=== PATIENT | female | born 1980 | race Caucasian/White ===

== ENCOUNTER 2024-03-12 08:35 | Emergency (ER) | payer BC, SELFPAY ==
[2024-03-12 08:38] VITALS: BP 106/68; PULSE 68; RESP 16; TEMP 36.8; O2SAT 100; BMI 21.9
--- NOTE | 2024-03-12 09:00 | CT_ITS ---
Patient: LILLIAN GARNER Facility:?[facility] Patient ID:?[id number] Site Patient ID:?[id number]. Site :?[id number] Study:?CT-Abdomen/Pelvis W/ 58CC ISOVUE 370-03/12/2024 10:08:52 AM Ordering Physician:JOSÉ Final Report: INDICATION: Left-sided abdominal pain. History of IBS. History of appendectomy and cholecystectomy. Pacemaker. COMPARISON: There are no prior studies for comparison TECHNIQUE: CT examination of the abdomen and pelvis was performed following the uneventful intravenous administration of 58 cc of Isovue 370. Thin section axial images were obtained from the lung bases through the pubic symphysis. Oral contrast was not administered. Please note that all CT scans at this facility use dose modulation, iterative reconstruction, and/or weight-based dosing when appropriate to reduce radiation dose to as low as reasonably achievable. FINDINGS: LUNG BASES: The lung bases as visualized appear normal.The heart size is normal at the lung bases. LIVER/BILIARY SYSTEM:Hypervascular lesion in the right lobe of the liver measuring about 13 millimeters. Statistically this is most likely a hemangioma.Recommend confirmation an ultrasound could be performed as a 1st line of additional evaluation. No biliary ductal dilation. There has been a cholecystectomy ADRENALS: There is KIDNEYS, URETERS and BLADDER:The kidneys appear normal. No visible mass, calculus or hydronephrosis. The ureters and bladder as visualized appear normal. SPLEEN:Normal appearance. PANCREAS: Appears normal. RETROPERITONEUM and MESENTERY: There is no mass, adenopathy or aortic aneurysm. GASTROINTESTINAL SYSTEM: Bowel wall thickening on the left. This is primarily proximal and mid jejunum. There is also a jejunojejunal intussusception. This is best seen on coronal images number 30 through 37. No clearly visible pathologic lead point or upstream dilation to suggest obstruction. No specific findings of mesenteric ischemia on this exam. Regarding the colon, diffuse fecal retention without colonic mechanical obstruction. PELVIS: No mass, adenopathy or free fluid. OSSEOUS STRUCTURES and ABDOMINAL WALL: There is an age-appropriate appearance of the osseous structures.No significant abdominal wall defect. OTHER: No free fluid or free air. IMPRESSION: 1. Nonspecific diffuse wall thickening on the left. This is primarily proximal and mid jejunum. There is also a jejunojejunal intussusception in this area. No clearly visible pathologic lead point or upstream dilation to suggest obstruction. No CT findings of mesenteric ischemia. 2. Hypervascular lesion in the right lobe of the liver probably a hemangioma. Confirmation by follow-up imaging recommended at a clinically appropriate time Please note that all CT scans at this facility use dose modulation, iterative reconstruction, and/or weight-based dosing when appropriate to reduce radiation dose to as low as reasonably achievable. Dictated by Rashaad Cohn MD @ 03/12/2024 10:38:01 AM Signed by:?Rashaad Cohn MD @03/12/2024 10:38:01 AM (Electronic Signature)
--- NOTE | 2024-03-12 09:02 | ED.ABDPAIN ---
HPI - Abdominal Pain General Chief Complaint: Abdominal Pain Stated Complaint: abdominal pain Time Seen by Provider: 03/12/24 08:49 History of Present Illness HPI narrative: This 44-year-old female comes in reporting abdominal pain that started last week. She did have a visit to her primary physician and a CT scan was done which showed the possibility of a small amount of intussusception in the small bowel. She contacted the surgeon is said it would likely resolve on its own. At that time her pain was crampy. This morning her pain became more constant. She arrives here with normal vital signs. She states that she had a bowel movement after some constipation. The bowel movement was last night and then and there was some diarrhea this morning. She does not report any fever or blood in the toilet. She states that she has a complicated medical history. She reports having 12 different surgeries. She does report history of irritable bowel syndrome. Related Data Home Medications Medication Instructions Recorded Confirmed cholecalciferol (vitamin D3) 125 125 mcg PO QDAY 09/20/23 03/12/24 mcg (5,000 unit) capsule desvenlafaxine succinate 100 mg 100 mg PO DAILY 09/20/23 03/12/24 tablet,extended release 24 hr estradiol 0.1 mg/24 hr semiweekly 1 patch transdermal 2XW 09/20/23 03/12/24 transdermal patch quetiapine 25 mg tablet mg PO 09/20/23 09/20/23 Previous Rx's Medication Instructions Recorded ketorolac 10 mg tablet 10 mg PO Q8H 5 days #15 tabs 03/12/24 ondansetron HCl 4 mg tablet 4 mg PO Q6H #15 tabs 03/12/24 Allergies Allergy/AdvReac Type Severity Reaction Status Date / Time acetaminophen [From Roxicet] Allergy Intermediate Verified 03/12/24 10:02 oxycodone [From Roxicet] Allergy Intermediate Verified 03/12/24 10:02 adhesive tape Allergy Verified 03/12/24 10:02 ciprofloxacin Allergy Verified 03/12/24 10:02 nitrofurantoin Allergy Verified 03/12/24 10:02 [From Macrobid] prochlorperazine Allergy Verified 03/12/24 10:02 [From Compazine] Review of Systems Status of ROS Reports: 10 or more systems reviewed and unremarkable except as noted in History and below Narrative Constitutional: No fevers, no weight gain or loss. Eyes: No discharge. No vision changes. HENT: No congestion, no sore throat, no ear pain. Cardiovascular: No chest pain, no palpitations. Respiratory: No shortness of breath, no wheezes, no cough. Gastrointestinal: Abdominal pain across the lower abdomen. Nausea but no vomiting. One episode of diarrhea. Genitourinary: No dysuria, no hematuria. Musculoskeletal: Normal range of motion. Skin: No rashes, no pruritis. Neurological: No dizziness, weakness, sensory change, speech change. Endo/Heme/Allergies: No bruising or bleeding. No polydipsia. Pysch: no suicidality, no anxiety, no insomnia. All other systems reviewed and are negative. PFSH [facility] Social History Smoking Status: Never smoker Do you use any of these nicotine containing products: None Second hand tobacco smoke exposure: No How often do you have a drink containing alcohol: never How often do you have six or more drinks on one occasion: Never AUDIT-C Alcohol total score: 0 Non-prescribed substance use: denies use Exam Narrative: Exam Narrative: Constitutional: Well-developed, well-nourished, no acute distress. HEENT: Normocephalic, atraumatic. Neck: Normal range of motion. Nontender. Supple. Heart: Regular. No murmurs. Normal rate. Intact distal pulses. Lungs: Clear to auscultation. No chest discomfort. No wheezes, rhonchi, or rales. Abdomen: Normal bowel sounds. Diffuse tenderness across the lower abdomen. No rebound tenderness. Genitalia: Deferred. Back: No midline tenderness. Normal range of motion. Extremities: Normal range of motion. No injury. Skin: Intact. No rash. Warm. No erythema or pallor. Neurologic: No altered sensation. No weakness. Alert and oriented. Psychiatric: No suicidality. No anxiety or depression. No insomnia. Nursing notes and vitals signs are reviewed. Const: Vital Signs, click to edit/add: Vital Signs - 24 hr 03/12/24 08:38 Temperature 98.2 F Pulse Rate [Pulse Oximeter] 68 Respiratory Rate 16 Blood Pressure [Ri ght Upper Arm] 106/68 Pulse Oximetry 100 Oxygen Delivery Me thod Room Air Course Vital Signs Vital signs: Initial Vital Signs Temperature 98.2 F 03/12/24 08:38 Temperature Source Temporal Artery Scan 03/12/24 08:38 Pulse Rate 68 03/12/24 08:38 Respiratory Rate 16 03/12/24 08:38 Blood Pressure 106/68 03/12/24 08:38 Blood Pressure Mean 80 03/12/24 08:38 Blood Pressure Position Supine 03/12/24 08:38 Pulse Oximetry 100 03/12/24 08:38 Oxygen Delivery Method Room Air 03/12/24 08:38 Vital Signs Temperature 98.2 F 03/12/24 08:38 Pulse Rate 68 03/12/24 08:38 Respiratory Rate 16 03/12/24 08:38 Blood Pressure 106/68 03/12/24 08:38 Pulse Oximetry 100 03/12/24 08:38 Oxygen Delivery Method Room Air 03/12/24 08:38 Temperature 98.2 F 03/12/24 08:38 Pulse Rate 68 03/12/24 08:38 Respiratory Rate 16 03/12/24 08:38 Blood Pressure 106/68 03/12/24 08:38 Pulse Oximetry 100 03/12/24 08:38 Oxygen Delivery Method Room Air 03/12/24 08:38 Medications Administered Medications: Discontinued Medications Generic Name Dose Route Start Last Admin Trade Name Freq PRN Reason Stop Dose Admin Ketorolac Tromethamine 15 mg 03/12/24 09:15 03/12/24 09:20 Ketorolac 15 Mg/Ml Inj IVP 03/12/24 09:16 15 mg ONCE ONE Administration Ondansetron HCl 4 mg 03/12/24 09:00 03/12/24 09:20 Ondansetron 2 Mg/Ml Inj IVP 03/12/24 09:01 4 mg ONCE ONE Administration MDM - Abdominal Pain MDM Narrative Medical decision making narrative: This patient comes in with persistent abdominal pain over the past week or more. She did have a CT scan elsewhere about a week ago which did show some uncomplicated intussusception. A repeat CT scan is done today which shows persistent intussusception without any evidence of obstruction or mesenteric ischemia. Lab results also are reassuring today. The patient did receive an IV dose of Toradol which helped her feel better. I did speak with the surgeon on-call regarding this CT findings and is recommended with persistent intussusceptions that she have a surgery to attend to this. The patient has connections with the [facility] in this regard and prefers to follow-up with them. It is a surgery that should happen sooner than later but it also is reassuring that her labs and vital signs are normal and her pain is improved. The patient did receive CT images on a disc for this follow-up to occur. She plans to connect with them today. I advised her to return otherwise as needed. She received prescription for Toradol and understands that this may be a medicine that she should not take prior to surgery. She also received a prescription for Zofran. Lab Data Labs: Lab Results 03/12/24 03/12/24 Range/Units 09:15 11:32 WBC 4.08 L (4.50-11.00) K/uL RBC 4.05 (4.00-5.20) m/uL Hgb 12.0 (12.0-16.0) gm/dL Hct 37.0 (33.0-51.0) % MCV 91 (80-100) fL MCH 30 (26-34) pg MCHC 32 (32-36) gm/dL RDW Coeff of Juliana 12.5 (11.5-15.5) % Plt Count 201 (140-440) K/uL Neut % (Auto) 69.5 (42.0-72.0) % Lymph % (Auto) 22.5 (20-44) % [place] % (Auto) 5.9 (0.0-11.0) % Eos % (Auto) 0.7 (0.0-7.0) % Baso % (Auto) 1.2 (0.0-3.0) % Neut # (Auto) 2.80 (1.7-7.0) K/uL Lymph # (Auto) 0.90 (0.90-2.90) K/uL [place] # (Auto) 0.20 (0.00-0.90) K/UL Eos # (Auto) 0.00 (0.00-0.50) K/uL Baso # (Auto) 0.00 (0.00-0.30) K/uL Abs Immat Gran (auto) 0.00 (0.00-0.30) K/uL Imm/Tot Granulo (auto) 0.2 % Sodium 140 (135-149) mmol/L Potassium 4.0 (3.6-5.1) mmol/L Chloride 108 (96-114) mmol/L Carbon Dioxide 27 (20-32) mmol/L Anion Gap 5 L (7-15) mEq/L BUN 14 (5-24) mg/dL Creatinine 0.6 (0.5-1.5) mg/dL Estimated Creat Clear 94.63 Estimated GFR 113 ml/min Glucose 87 (60-115) mg/dL Calcium 8.4 (8.4-10.6) mg/dL C-Reactive Protein < 0.5 L (0.5-1.0) mg/dL Urine Color Yellow (Yellow) Urine Appearance Clear (Clear) Urine pH 8.5 (5.0-8.5) Ur Specific [place] 1.015 (1.000-1.030) Urine Protein Negative (Negative) Urine Glucose (UA) Negative (Negative) Urine Ketones Negative (Negative) Urine Blood Negative (Negative) Urine Nitrite Negative (Negative) Urine Bilirubin Negative (Negative) Urine Urobilinogen 0.2 (0.2-1.0) Ur Leukocyte Esterase Negative (Negative) Urine RBC 0-2 (0-2) Urine WBC 0-2 (0-5) Ur Squamous Epith Cells None (None-Few) Urine Bacteria None (None) Imaging Data CT scan - abdomen: Radiologist's impression: 1. Nonspecific diffuse wall thickening on the left. This is primarily proximal and mid jejunum. There is also a jejunojejunal intussusception in this area. No clearly visible pathologic lead point or upstream dilation to suggest obstruction. No CT findings of mesenteric ischemia. 2. Hypervascular lesion in the right lobe of the liver probably a hemangioma. Confirmation by follow-up imaging recommended at a clinically appropriate time Discharge Plan Discharge Clinical Impression: Intussusception of jejunum Patient Disposition: Home, Self-Care Condition: Improved Additional Instructions: Follow-up today with [facility] for management of persistent intussusception. Return if unable to make such arrangements or if symptoms are worsening. Prescriptions: New ondansetron HCl 4 mg tablet 4 mg PO Q6H Qty: 15 0RF ketorolac 10 mg tablet 10 mg PO Q8H 5 Days Qty: 15 0RF No Action desvenlafaxine succinate 100 mg tablet extended release 24 hr 100 mg PO DAILY estradiol 0.1 mg/24 hr patch semiweekly 1 patch transdermal 2XW quetiapine 25 mg tablet PO cholecalciferol (vitamin D3) 125 mcg (5,000 unit) capsule 125 mcg PO QDAY Follow Up/Referrals: Provider,Not a Local [Referring] - Stand Alone Forms: [email or web address] Info Instructions
[2024-03-12] MEDS: KETOROLAC 15 MG/ML inj IVP (09:20)
[2024-03-12] MEDS: ONDANSETRON 2 MG/ML inj 4 MG IVP (09:20)
[2024-03-12 09:25] LABS: Basophils Percent Auto 1.2 % (0.0-3.0); Eosinophils Percent Auto 0.7 % (0.0-7.0); Immature Granulocytes Pct Auto 0.2 %; Lymphocytes Percent Auto 22.5 % (20-44); Mean Corpuscular HGB Conc 32 gm/dL (32-36); Mean Corpuscular Hemoglobin 30 pg (26-34); Mean Corpuscular Volume 91 fL (80-100); Monocytes Percent Auto 5.9 % (0.0-11.0); Neutrophils Percent Auto 69.5 % (42.0-72.0); Platelet Count* 201 K/uL (140-440); RDW Coefficient of Variation % 12.5 % (11.5-15.5); Red Blood Count 4.05 m/uL (4.00-5.20); White Blood Count* 4.08 K/uL (4.50-11.00)
[2024-03-12 09:29] LABS: Slide Review Reflex No
[2024-03-12 09:37] LABS: Chloride* 108 mmol/L (96-114); Sodium* 140 mmol/L (135-149)
[2024-03-12 09:40] LABS: Anion Gap 5 mEq/L (7-15); Blood Urea Nitrogen* 14 mg/dL (5-24); Carbon Dioxide* 27 mmol/L (20-32); Creatinine* 0.6 mg/dL (0.5-1.5); Est. Creatinine Clearance* 94.63; Estimated Glomerular Filt Rate 113 ml/min
[2024-03-12 09:41] LABS: Calcium* 8.4 mg/dL (8.4-10.6); Glucose* 87 mg/dL (60-115)
[2024-03-12 09:43] LABS: C Reactive Protein* < 0.5 mg/dL (0.5-1.0)
[2024-03-12 11:39] LABS: Appearance Urine Clear (Clear); Bilirubin Urine Negative (Negative); Blood Urine Negative (Negative); Color Urine Yellow (Yellow); Glucose Urine Negative (Negative); Ketones Urine Negative (Negative); Leukocyte Esterase Urine Negative (Negative); Nitrite Urine Negative (Negative); Protein Urine Negative (Negative); Specific Gravity Urine 1.015 (1.000-1.030); Urobilinogen Urine 0.2 (0.2-1.0); pH Urine 8.5 (5.0-8.5)
[2024-03-12 11:58] LABS: RBC Urine 0-2 (0-2); WBC Urine 0-2 (0-5)
== END 2024-03-12 12:46 | disposition home or self-care (01) ==
PROVIDERS: Emergency Provider Emergency Medicine Emergency Medical Services; PCP Family Medicine
DX: K56.1 Intussusception (principal)
CPT/HCPCS: 36415; 74177; 80048; 81001; 85025; 86140; 96374; 96375; 99284; 99285; J1885; J2405; Q9967

== ENCOUNTER 2025-01-27 10:40 | Outpatient (CLI) | payer BC, SELFPAY | END 2025-01-27 10:41 | disposition home or self-care (01) | PROVIDERS: PCP Family Medicine; Visit Provider Physician Assistant | DX: R10.9 Unspecified abdominal pain (principal) | CPT/HCPCS: 86140; 87086 ==